=== PATIENT | female | born 1995 | race Caucasian/White ===

== ENCOUNTER → 2016-06-17 | Outpatient (CLI) | payer OTHER ==
[~2016-06-17] MED LIST: Augmentin; IBUP-792; LORYNA; MULT-608; NAPR500T3 PO; TRAM-42 PO
--- NOTE | 2016-06-17 16:48 | Diagnostic Imaging Report ---
PA and lateral views of the chest Indication: Cough Findings: The lungs are clear. The heart size is normal. There is no effusion or pneumothorax The mediastinum and chang appear unremarkable. Impression: Unremarkable study. Dictated by: Dictated on workstation # [id number]
== END ==
LOC: RAD 16:23
PROVIDERS: ATTEND Nurse Practitioner Family
DX: R06.02 Shortness of breath (principal); R05 Cough
CPT/HCPCS: 71020

== ENCOUNTER → 2017-01-18 | Outpatient (CLI) | payer OTHER ==
[~2017-01-18] VITALS: Ht 177.8 cm; Wt 143.3 kg
[~2017-01-18] MED LIST changes: -NAPR500T3 PO; +NAPR500T4 PO; +NS IV 1000 ML 1,000 ML IV SCH; +ONDANSETRON 4 MG/2 ML (SDV) Z0FRAN IV PRN
[2017-01-18 14:50] VITALS: BP 136/88
[2017-01-18 15:32] LABS: MEAN PLATELET VOLUME 11.3 FL (7.4-10.4); RED CELL DISTRIBUTION WIDTH 12.4 % (10.0-14.5)
[2017-01-18 15:51] LABS: ALANINE AMINOTRANSFERASE 57 U/L (0-55); ALBUMIN 4.1 GM/DL (3.2-4.5); ANION GAP 12 MMOL/L (5-14); ASPARTATE AMINO TRANSFERASE 33 U/L (5-34); BILIRUBIN,TOTAL 0.9 MG/DL (0.1-1.0); BLOOD UREA NITROGEN 7 MG/DL (7-18); BUN/CREATININE RATIO 9; CALCIUM 9.6 MG/DL (8.5-10.1); CARBON DIOXIDE 26 MMOL/L (21-32); CHLORIDE 99 MMOL/L (98-107); CREATININE SERUM 0.79 MG/DL (0.60-1.30); GFR ESTIMATED > 60; GLUCOSE 179 MG/DL (70-105); POTASSIUM 4.2 MMOL/L (3.6-5.0); SODIUM 137 MMOL/L (135-145); TOTAL PROTEIN 8.3 GM/DL (6.4-8.2)
[2017-01-20 07:16] LABS: IGM MUMPS ANTIBODY <1:10 (<1:10)
[2017-01-20 07:22] LABS: IGG MUMPS ANTIBODY >300.0 H AU/ML (0.0-8.9)
[2017-01-20 07:25] LABS: MUMPS IGG INT Positive
== END ==
LOC: SDC 14:42
PROVIDERS: ATTEND Nurse Practitioner Family
DX: R50.9 Fever, unspecified (principal); E86.0 Dehydration; J02.9 Acute pharyngitis, unspecified
CPT/HCPCS: 36415; 80053; 85027; 86308; 86735; 96365; 96375

== ENCOUNTER → 2017-02-01 | Outpatient (CLI) | payer OTHER ==
[~2017-02-01] MED LIST changes: -NS IV 1000 ML 1,000 ML IV SCH; -ONDANSETRON 4 MG/2 ML (SDV) Z0FRAN IV PRN
--- NOTE | 2017-02-01 15:25 | Diagnostic Imaging Report ---
PROCEDURE: MRI right joint lower extremity without contrast. TECHNIQUE: Multiplanar, multisequence non contrast-enhanced MRI of the right ankle was accomplished. INDICATION: Ankle pain with repetitive injuries. COMPARISONS: Ankle radiographs of 02/01/2016. FINDINGS: TENDONS: The Achilles is normal. The peroneus brevis and longus tendons are normal in position without tear or tenosynovitis. The posterior tibialis, flexor digitorum longus and flexor hallucis longus are normal. Anterior tibialis, extensor hallucis longus, extensor digitorum longus and peroneus tertius are all normal where seen. LIGAMENTS: The anterior and posterior tibiofibular ligaments are intact. The anterior talofibular, calcaneofibular and posterior talofibular ligaments are normal. The medial deltoid ligamentous complex is intact. BONES AND CARTILAGE: No osteochondral lesion of the talar dome. No fracture or stress fracture. The articular cartilage of the tibiotalar and posterior subtalar joints are normal. Normal variant os trigonum is present without edema across the synchondrosis to indicate posterior ankle impingement. SOFT TISSUES: No evidence of plantar fasciitis. No abnormal soft tissue scar/fibrosis within the tarsal canal/sinus tarsi or tarsal tunnel. No ankle joint effusion. IMPRESSION: 1. No tendinous or ligamentous abnormality about the ankle to indicate patient's source of pain. 2. No fracture or bone contusion. Dictated by: Dictated on workstation # [id number]
== END ==
LOC: RAD 10:46
PROVIDERS: ATTEND Nurse Practitioner
DX: S86.311A Strain of muscle(s) and tendon(s) of peroneal muscle group at lower leg level, right leg, initial encounter (principal)
CPT/HCPCS: 73721

== ENCOUNTER 2017-03-26 10:45 | Outpatient (RCR) | payer OTHER | END 2017-03-26 12:07 | disposition home or self-care (01) | PROVIDERS: ATTEND Nurse Practitioner | DX: S93.491A Sprain of other ligament of right ankle, initial encounter (principal); X50.9XXA Other and unspecified overexertion or strenuous movements or postures, initial encounter ==

== ENCOUNTER → 2017-07-28 | Outpatient (CLI) | payer OTHER ==
[~2017-07-28] MED LIST changes: +NAPR-915 PO; -NAPR500T4 PO
--- NOTE | 2017-07-28 17:32 | Diagnostic Imaging Report ---
EXAMINATION: Abdomen at 5:03 p.m. INDICATION: Left-sided abdominal pain. There are no prior studies available for comparison. Two supine views were obtained. FINDINGS: There is a small amount of gas in both the large and small bowel in a nonspecific fashion. There is no evidence for bowel obstruction. There is a moderate amount of fecal material in the ascending colon. There is no mass, organomegaly, or pathological calcification evident. The osseous structures are intact. IMPRESSION: 1. The bowel gas pattern is nonspecific. There is no acute abnormality evident. 2. These results were called to Rafaela Lobato APRN. Dictated by: Dictated on workstation # [id number]
== END ==
LOC: RAD 16:11
PROVIDERS: ATTEND Nurse Practitioner Family
DX: R10.30 Lower abdominal pain, unspecified (principal)
CPT/HCPCS: 74018

== ENCOUNTER → 2017-09-02 | Outpatient (CLI) | payer OTHER ==
--- NOTE | 2017-09-02 14:03 | Diagnostic Imaging Report ---
PROCEDURE: US Non-ob pelvis comp/trans. TECHNIQUE: Multiple realtime grayscale images were obtained of the pelvis in various projections endovaginally. Transabdominal imaging was also performed. INDICATION: Dysfunctional uterine bleeding and pelvic pain. FINDINGS: Uterus measures 5.9 x 3.7 x 2.6 cm. The endometrium is 3 mm in thickness. No uterine mass is identified. Left ovary was obscured by bowel gas. Right ovary measures 4.5 x 3.6 x 1.8 cm. No adnexal mass or free fluid is seen. IMPRESSION: Nonvisualized left ovary. The study is otherwise unremarkable. Dictated by: Dictated on workstation # [id number]
== END ==
LOC: RAD 10:52
PROVIDERS: ATTEND Nurse Practitioner
DX: N93.8 Other specified abnormal uterine and vaginal bleeding (principal)
CPT/HCPCS: 76830; 76856

== ENCOUNTER → 2018-05-13 | Outpatient (CLI) | payer OTHER ==
--- NOTE | 2018-05-13 12:32 | Diagnostic Imaging Report ---
PROCEDURE: US Non-ob pelvis comp/trans. TECHNIQUE: Multiple realtime grayscale images were obtained of the pelvis in various projections endovaginally. Transabdominal imaging was also performed. INDICATION: Left-sided pelvic pain as well as dyspareunia and irregular menses. FINDINGS: The uterus measures 6.4 x 3.8 x 3.1 cm. Endometrium is 3 mm in thickness. No myometrial mass is identified. Right ovary measures 2.7 x 2.5 x 1.4 cm and appears unremarkable. Left ovary is visualized transabdominally measuring 3.5 x 1.6 x 1.6 cm. No adnexal masses seen. Trace free fluid is identified. IMPRESSION: Unremarkable pelvic ultrasound. Dictated by: Dictated on workstation # [id number]
== END ==
LOC: RAD 10:36
PROVIDERS: ATTEND Nurse Practitioner
DX: N83.209 Unspecified ovarian cyst, unspecified side (principal)
CPT/HCPCS: 76830; 76856

== ENCOUNTER → 2018-10-06 | Outpatient (CLI) | payer OTHER ==
[2018-10-06 11:21] LABS: BASOPHILS % (AUTO) 1 % (0-10); EOSINOPHILS # (AUTO) 0.5 10^3/uL (0.0-0.3); EOSINOPHILS % (AUTO) 6 % (0-10); HEMATOCRIT 41 % (35-52); HEMOGLOBIN 14.1 G/DL (11.5-16.0); LYMPHOCYTES % (AUTO) 24 % (12-44); MEAN CORPUSCULAR HEMOGLOBIN 31 PG (25-34); MEAN CORPUSCULAR HGB CONC 34 G/DL (32-36); MEAN CORPUSCULAR VOLUME 89 FL (80-99); MEAN PLATELET VOLUME 11.4 FL (7.4-10.4); MONOCYTES # (AUTO) 0.6 X 10^3 (0.0-1.0); MONOCYTES % (AUTO) 8 % (0-12); NEUTROPHILS % (AUTO) 62 % (42-75); PLATELET COUNT 288 10^3/uL (130-400); RED CELL DISTRIBUTION WIDTH 13.2 % (10.0-14.5); WHITE BLOOD COUNT 8.1 10^3/uL (4.3-11.0)
[2018-10-06 11:36] LABS: ALANINE AMINOTRANSFERASE 28 U/L (0-55); ALKALINE PHOSPHATASE 88 U/L (40-136); BILIRUBIN,TOTAL 0.4 MG/DL (0.1-1.0); BUN/CREATININE RATIO 10; CALCIUM 9.1 MG/DL (8.5-10.1); CARBON DIOXIDE 21 MMOL/L (21-32); CHLORIDE 111 MMOL/L (98-107); CREATININE SERUM 0.79 MG/DL (0.60-1.30); GFR ESTIMATED > 60; GLUCOSE 72 MG/DL (70-105); POTASSIUM 3.9 MMOL/L (3.6-5.0); SODIUM 142 MMOL/L (135-145); TOTAL PROTEIN 7.3 GM/DL (6.4-8.2)
== END ==
LOC: LAB 11:05
PROVIDERS: ATTEND Family Medicine
DX: L40.9 Psoriasis, unspecified (principal)
CPT/HCPCS: 36415; 80053; 82746; 85025

== ENCOUNTER 2018-11-02 12:00 | Outpatient (CLI) | payer OTHER ==
[~2018-11-02] VITALS: Ht 177.8 cm; Wt 136.1 kg
[2018-11-02] MEDS ORDERED: MULT-141 PO (12:02)
[2018-11-02] MEDS ORDERED: BACI1CAP6 PO (12:02)
[2018-11-02] MEDS ORDERED: FOLI1TAB24 PO (12:02)
[2018-11-02] MEDS ORDERED: LEVO1TAB20 PO (12:02)
[2018-11-02] MEDS ORDERED: ASCO-262 PO (12:02)
[2018-11-02] MEDS ORDERED: TOPI25TA10 PO (12:02)
[2018-11-02] MEDS ORDERED: METH2.5T PO (12:02)
== END 2018-11-02 12:09 | disposition home or self-care (01) ==
LOC: PREOP 12:00
PROVIDERS: ATTEND Obstetrics & Gynecology
DX: Z01.818 Encounter for other preprocedural examination (principal)

== ENCOUNTER 2018-11-07 09:13 | Day surgery (SDC) | payer OTHER ==
[~2018-11-07] VITALS: Ht 177.8 cm; Wt 136.1 kg
[2018-11-07] VITALS (11 sets, daily range): BP systolic 121–139; BP diastolic 72–87
[~2018-11-07 09:13] MED LIST changes: +ASCO-262 PO; +BACI1CAP6 PO; +FOLI1TAB24 PO; +LEVO1TAB20 PO; +METH2.5T PO; +MULT-141 PO; +TOPI25TA10 PO
[2018-11-07] MEDS ORDERED: LACTATED RINGERS 1,000 ML IV PRN (09:24)
[2018-11-07] MEDS ORDERED: ceFAZolin INJECTION 1,000 MG in WATER (STERILE) FOR INJECTION 10 ML IV ONE (09:30)
--- NOTE | 2018-11-07 09:37 | Progress Note-Pre Operative ---
Pre-Operative Progress Note H&P Reviewed The H&P was reviewed, patient examined and no changes noted. Date Seen by Provider: Nov 07, 2018 Time Seen by Provider: 09:10 Date H&P Reviewed: Nov 07, 2018 Time H&P Reviewed: 09:10 Pre-Operative Diagnosis: JOAQUINA NEWMAN DO Nov 07, 2018 09:37
[2018-11-07 10:42] LABS: BASOPHILS % (AUTO) 0 % (0-10); EOSINOPHILS # (AUTO) 0.3 10^3/uL (0.0-0.3); EOSINOPHILS % (AUTO) 4 % (0-10); HEMATOCRIT 41 % (35-52); HEMOGLOBIN 13.8 G/DL (11.5-16.0); LYMPHOCYTES % (AUTO) 30 % (12-44); MEAN CORPUSCULAR HEMOGLOBIN 31 PG (25-34); MEAN CORPUSCULAR HGB CONC 33 G/DL (32-36); MEAN CORPUSCULAR VOLUME 91 FL (80-99); MEAN PLATELET VOLUME 11.3 FL (7.4-10.4); MONOCYTES # (AUTO) 0.5 X 10^3 (0.0-1.0); MONOCYTES % (AUTO) 7 % (0-12); NEUTROPHILS # (AUTO) 3.9 X 10^3 (1.8-7.8); NEUTROPHILS % (AUTO) 58 % (42-75); PLATELET COUNT 298 10^3/uL (130-400); RED CELL DISTRIBUTION WIDTH 13.9 % (10.0-14.5); WHITE BLOOD COUNT 6.7 10^3/uL (4.3-11.0)
--- NOTE | 2018-11-07 10:56 | Discharge Inst-Women's Service ---
Discharge Inst-Women's Serv Depart Medication/Instructions New, Converted or Re-Newed RX: RX on Chart Problems Reviewed?: Yes Consults/Follow Up Additional Follow Up: Yes Orders/Referrals Dr. Puente in 2 weeks and in 8 weeks Activity Activity: Activity as Tolerated Driving Instructions: No Driving for 1 Week NO SMOKING: NO SMOKING Nothing Inside Vagina: No Douching, No [place], No Tampons Diet Discharge Diet: No Restrictions Symptoms to Report to : Bleeding Excessive, Pain Increased, Fever Over 101 Degrees F, Vaginal Bleeding Increase, Questions/Concerns For Any Problems or Questions: Contact Your Physician Skin/Wound Care Infection Signs and Symptoms: Increased Redness, Foul Odor of Wound, Increased Drainage, Skin Itchy or Has a Rash, Increased Swelling, Temperature Above 101 F Operative Area Clean and Dry: Keep Incision Clean/Dry Stitches/[place]/Dermabond: Dermabond, Care of Stitches Bathing Instructions: JOAQUINA Garces DO Nov 07, 2018 10:56
[2018-11-07] MEDS ORDERED: D5 LR IV SOLUTION 1,000 ML IV SCH (10:59)
[2018-11-07] MEDS ORDERED: HYDR-4226 PO (10:59)
[2018-11-07] MEDS ORDERED: IBUP-1773 PO (10:59)
[2018-11-07] MEDS ORDERED: ONDANSETRON 4 MG/2 ML (SDV) Z0FRAN IVP PRN ×2 (11:00→13:30)
[2018-11-07] MEDS ORDERED: HYDROcodone/APAP 5 MG/325 MG (LORTAB) TAB PO PRN (11:00)
[2018-11-07] MEDS ORDERED: KETOROLAC 30 MG/ML VIAL IVP ONE (11:00)
[2018-11-07] MEDS ORDERED: BUPIVACAINE 0.25% 30 ML (SENSORCAINE) VIAL ONE (11:46)
[2018-11-07] MEDS ORDERED: MULT-192 PO (12:19)
[2018-11-07] MEDS ORDERED: SEVOFLURANE (ULTANE) 15 ML INHAL SOLN ONE ×5 (13:11→14:20)
[2018-11-07] MEDS ORDERED: LIDOCAINE PF 2% 5 ML (XYLOCAINE) VIAL ONE (13:11)
[2018-11-07] MEDS ORDERED: proPOfol 200 MG/20 ML (DIPRIVAN) VIAL IV ONE (13:11)
[2018-11-07] MEDS ORDERED: MIDAZOLAM 2 MG/2 ML (VERSED) VIAL ONE (13:12)
[2018-11-07] MEDS ORDERED: fentaNYL INJECTION 100 MCG/2 ML AMP ONE (13:13)
[2018-11-07] MEDS ORDERED: MEPERIDINE (DEMEROL) INJ 50 MG/ML IVP ONE (13:30)
[2018-11-07] MEDS ORDERED: morphine INJ 10 MG/ML 1ML (SYR OR VIAL) IVP ONE (13:30)
[2018-11-07] MEDS ORDERED: ROCURONIUM 10 MG/ML 5 ML SYRINGE IV ONE (14:09)
[2018-11-07] MEDS ORDERED: NEOSTIGMINE 3 MG/3 ML VIAL ONE (14:20)
[2018-11-07] MEDS ORDERED: KETOROLAC 30 MG/ML VIAL ONE (14:20)
[2018-11-07] MEDS ORDERED: GLYCOPYRROLATE 0.2 MG/ML (ROBINUL) 2 ML VIAL ONE (14:20)
[2018-11-07] MEDS ORDERED: DEXAMETHASONE 10 MG/ML (DECADRON) 1 ML VIAL ONE (14:21)
[2018-11-07] MEDS ORDERED: ONDANSETRON 4 MG/2 ML (SDV) Z0FRAN ONE (14:21)
--- NOTE | 2018-11-07 15:32 | Anesthesia-General Post-Op ---
General Patient Condition Mental Status/LOC: Same as Preop Cardiovascular: Satisfactory Nausea/Vomiting: Absent Respiratory: Satisfactory Pain: Controlled Complications: Absent Post Op Complications Complications None Follow Up Care/Instructions Patient Instructions None needed. Anesthesia/Patient Condition Patient Condition Patient is doing well, no complaints, stable vital signs, no apparent adverse anesthesia problems. No complications reported per nursing. MARY SOTO CRNA Nov 07, 2018 15:32
--- NOTE | 2018-11-07 16:33 | NUR ---
HAS BEEN ALERT, CHEERFUL, TAKING PO FLUIDS AND CRACKERS WITHOUT PROBLEM THROUGHOUT RECOVERY. HAS BEEN UP TO BR WITH ASSIST, VOIDED, GAIT STEADY. DERMABOND INTACT TO X2 LAP ABD SURGICAL SITES. VERY SCANT AMOUNT OF BLOODY DRAINAGE ON V-PAD. PAIN RATED 2. STATES SHE IS READY FOR DISMISSAL.
--- NOTE | 2018-11-07 19:42 | OPERATIVE REPORT ---
DATE OF SERVICE: 11/07/2018 PREOPERATIVE DIAGNOSES: 1. A 23-year-old female with chronic pelvic pain. 2. Dysmenorrhea. POSTOPERATIVE DIAGNOSES: 1. A 23-year-old female with chronic pelvic pain. 2. Dysmenorrhea. PROCEDURE PERFORMED: Diagnostic laparoscopy with placement of Liletta IUD. SURGEON: Joaquina Rivera DO ANESTHESIA: General endotracheal. ESTIMATED BLOOD LOSS: Minimal. URINE OUTPUT: 125, clear at the end of the procedure. FLUIDS: 800 mL lactated Ringer's solution. FINDINGS: A grossly normal appearing uterus, bilateral fallopian tubes and ovaries, a small amount of clotted blood in the pelvis, otherwise, grossly normal abdominal anatomy otherwise. SPECIMEN SENT: None. INDICATIONS FOR PROCEDURE: This 23-year-old female patient has seen me in my office for over a year now with concerns of pelvic pain, severe painful periods. Other alternative methods have been attempted to try and stop her periods and the discomfort they are causing, it is also causing dyspareunia and affecting her relationship. We discussed we proceed with diagnostic laparoscopy with underlying suspicion for endometriosis. Risks of the procedure were discussed with the patient in detail including risk of bleeding, infection, damage to surrounding structures including, but not limited to bowel, bladder, ureter, kidneys, possible need for reoperation, postoperative complication, recovery timeframe, risk from anesthesia and even . After everything was discussed with the patient in detail, we also discussed placement of Liletta while she was asleep both for her comfort and to hopefully help treat her painful periods. She was agreeable to this as well. After all of her questions were answered, consent was obtained in the preoperative area, the patient was taken to the operating room. OPERATIVE REPORT IN DETAIL: Once in the operating room, anesthesia was found to be adequate, placed in dorsal lithotomy position, prepped and draped in normal sterile fashion. A timeout was performed. Edmond catheter was placed using sterile technique. A weighted speculum was inserted in the patient's vagina. Right angle retractor was used to visualize the cervix. It was grasped at 12 o'clock position using a long Allis clamp. I then gently sounded and the uterine cavity depth was found to be 8 cm and I placed a Kronner uterine manipulator to a depth of 8 cm and removed the instruments from the patient's vagina performing the change of gloves and I turned my attention to the abdomen where infraumbilically I infiltrated this area using 0.25% Marcaine and make a 5 mm incision, directed Veress needle through the incision until intraperitoneal placement was confirmed using saline drop test and an opening pressure of 5 mmHg was noted. I proceeded to a max pressure of 15 mmHg, at which point I removed the Veress needle and introduced a 5 mm blunt laparoscopic trocar. Once this was in place, I am able to confirm intraperitoneal placement using the laparoscope. I then had the patient placed in steep Trendelenburg after I inserted the camera, there was no evidence of damage upon my entry site. There is a small amount of blood that was dark and clotted as noted in the pelvis and the posterior cul-de-sac. This was cleared using suction irrigation after placing a second trocar suprapubically and a 5 mm trocar. I placed in the same fashion as my infraumbilical trocar. Once this was in place, I am able to manipulate the pelvic anatomy and evaluated thoroughly and there was no evidence of endometriosis serosally. The pelvis and the abdomen was then copiously irrigated using normal saline. There was no active bleeding noted from any of my dissection planes. I have the patient taken out of steep Trendelenburg and flattened out. I removed the suprapubic trocar under direct visualization and laparoscope. The infraumbilical trocar was left in place to introduce 10 mL of 0.25% Marcaine and to release insufflation. Once this was done, I removed this trocar. The skin was reapproximated using Dermabond. Bandages were placed over the incisions. I turned my attention back to the pelvis where a weighted speculum was inserted in the patient's vagina and the Kronner uterine manipulator was removed. I placed a Liletta at a depth of 7 cm and deployed in the usual fashion, after which I trimmed the strings 2-3 cm outside the external cervical os. The patient tolerated the procedure well and was taken to recovery area in stable condition. All instruments were removed from the patient's vagina. Lap and sponge counts were correct at the end of the procedure. Instrument count was correct as well. Job ID: [id number] DocumentID: [id number] Dictated Date: 11/07/2018 14:57:10 Brief Writer Date: 11/07/2018 19:40:55 Dictated By: JOAQUINA RIVERA DO
== END 2018-11-07 16:33 | disposition home or self-care (01) ==
LOC: SDC 09:13
PROVIDERS: ATTEND Obstetrics & Gynecology
DX: N94.5 Secondary dysmenorrhea (principal); N93.9 Abnormal uterine and vaginal bleeding, unspecified; N94.10 Unspecified dyspareunia; G89.29 Other chronic pain; G43.909 Migraine, unspecified, not intractable, without status migrainosus; E66.9 Obesity, unspecified; R55 Syncope and collapse; Z90.89 Acquired absence of other organs; Z30.430 Encounter for insertion of intrauterine contraceptive device; Z68.41 Body mass index [BMI] 40.0-44.9, adult; Z88.8 Allergy status to other drugs, medicaments and biological substances; Z79.899 Other long term (current) drug therapy; Z88.1 Allergy status to other antibiotic agents; Z88.2 Allergy status to sulfonamides; Z79.891 Long term (current) use of opiate analgesic; Z82.49 Family history of ischemic heart disease and other diseases of the circulatory system
CPT/HCPCS: 36415; 84703; 85025; 86850; 86900; 86901; 87081; 94664

== ENCOUNTER 2019-03-20 23:45 | Emergency (ER) | payer OTHER ==
[~2019-03-20] VITALS: Ht 177 cm; Wt 139.5 kg
[~2019-03-20 23:45] MED LIST changes: +HYDR-4226 PO; +IBUP-1773 PO; +MULT-192 PO
[2019-03-21] MEDS ORDERED: RT-ALBUTEROL/IPRATROPIUM 3 ML (DUONEB) VIAL ONE (00:20)
[2019-03-21] MEDS ORDERED: RT-ALBUTEROL/IPRATROPIUM 3 ML (DUONEB) VIAL INH ONE (00:30)
[2019-03-21] MEDS ORDERED: RX-ALBUTEROL NEB 2.5 MG/3 ML PACK #5 IH STA (00:57)
[2019-03-21] MEDS ORDERED: methylPREDNISolone 40 MG/ML (DEPO MEDROL) VIAL IM ONE (01:00)
--- NOTE | 2019-03-21 01:01 | ED Respiratory ---
General Chief Complaint: Respiratory Problems Stated Complaint: SOB Nursing Triage Note: Pt to RM 9 via WC with c/o SOB after taking 2 puffs of albuterol IH around 2200 that was prescribed to her last year when she had pneumonia. PT states she had a cough and had some trouble breathing when she took the IH and has "been breathing heavily since". Pt is 99% on RA during triage. PT does not have a Hx of any resp issues. Source: patient Exam Limitations: no limitations History of Present Illness Date Seen by Provider: Mar 21, 2019 Time Seen by Provider: 00:48 Initial Comments Patient presents to ER by private conveyance with chief complaint of shortness of breath and wheezing. No history of asthma. She said 3 weeks ago she was diagnosed with bronchitis and was given an albuterol inhaler to use every 4 hours as needed as well as a course of steroids and azithromycin. She completed all that and was feeling better until a couple days ago. Now when she pushes patient is on carts back and forth the CT she became very winded and cannot catch her breath. She was using her albuterol inhaler 2 puffs every hour. She says it would work for about an hour and then she would become very short of breath and wheezy again. She does have a nonproductive cough but no fevers or chills. She is not taking antipyretics. She follows with Dr. Espitia. Allergies and Home Medications Allergies Coded Allergies: sulfamethoxazole (Verified Allergy, Unknown, Hives, 11/02/18) trimethoprim (Verified Allergy, Unknown, Hives, 11/02/18) Home Medications Albuterol Sulfate 2.5 Mg/3 Ml Vial.neb, 2.5 MG INH Q4H PRN for WHEEZING Prescribed by: SRUTHI THOMAS on 03/21/19 0157 Ascorbate Calcium 500 Mg Tablet, 500 MG PO DAILY, (Reported) Bacillus Coagulans 1 Each Capsule., 1 EACH PO DAILY, (Reported) Folic Acid 1 Mg Tablet, 1 MG PO DAILY, (Reported) Hydrocodone/Acetaminophen 1 Each Tablet, 1-2 TAB PO Q6H Prescribed by: JOAQUINA RIVERA on 11/07/18 1059 Ibuprofen 600 Mg Tablet, 600 MG PO Q6H Prescribed by: JOAQUINA RIVERA on 11/07/18 1059 Methotrexate Sodium 2.5 Mg Tablet, 20 MG PO WEEK, (Reported) take 8 (2.5mg) tabs on Multivitamin 1 Each Tab.chew, 2 EACH PO DAILY, (Reported) Topiramate 25 Mg Tablet, 25 MG PO BID, (Reported) Patient Home Medication List Home Medication List Reviewed: Yes Review of Systems Review of Systems Constitutional: No chills, No fever EENTM: No ear discharge, No ear pain Respiratory: cough; No phlegm; short of breath, wheezing Cardiovascular: No chest pain, No edema Gastrointestinal: No abdominal pain, No nausea, No vomiting Genitourinary: No discharge, No dysuria Musculoskeletal: No back pain, No joint pain All Other Systems Reviewed Negative Unless Noted: Yes Past Hsmhpap-Zdxzwx-Zcdstb Hx Patient Social History Alcohol Use: Denies Use Recreational Drug Use: No Smoking Status: Never a Smoker Recent Foreign Travel: No Contact w/Someone Who Travel: No Recent Infectious Disease Expo: No Recent Hopitalizations: No Immunizations Up To Date Tetanus Booster (TDap): Unknown PED Vaccines UTD: Yes Date of Influenza Vaccine: Nov 23, 2015 Seasonal Allergies Seasonal Allergies: Yes Past Medical History Surgeries: Yes (2 knee arthroscopies, wisdom) Adenoidectomy, Orthopedic, Tonsillectomy Respiratory: No Currently Using CPAP: No Currently Using BIPAP: No Cardiac: No Neurological: Yes Headaches /Migraines Reproductive Disorders: No Female Reproductive Disorders: Denies Sexually Transmitted Disease: No Genitourinary: No Gastrointestinal: No Musculoskeletal: Yes (knee scopes) Endocrine: No HEENT: No Cancer: No Psychosocial: No Integumentary: Yes Psoriasis Blood Disorders: No Physical Exam Vital Signs - First Documented 03/21/19 00:18 Temp 37.9 Pulse 82 Resp 22 B/P (MAP) 134/96 (109) Pulse Ox 99 O2 Delivery Room Air Capillary Refill : Less Than 3 Seconds Height: 5'10.00" Weight: 300lbs. 0.0oz. 136.551575ot; 44.00 BMI Method:Stated General Appearance: WD/WN, no apparent distress Eyes: Bilateral Eye Normal Inspection, Bilateral Eye PERRL, Bilateral Eye EOMI HEENT: PERRL/EOMI, normal ENT inspection, TMs normal, pharynx normal Neck: full range of motion, normal inspection Respiratory: no respiratory distress, no accessory muscle use; No rales; whe ezing (left worse than right) Cardiovascular: normal peripheral pulses, regular rate, rhythm Gastrointestinal: non tender, soft Neurologic/Psychiatric: alert, normal mood/affect, oriented x 3 Skin: normal color, warm/dry Progress/Results/Core Measures Suspected Sepsis Recent Fever Within 48 Hours: No Infection Criteria Present: None New/Unexplained Altered Menta: No Sepsis Screen: No Definite Risk SIRS Temperature: Pulse: 82 Respiratory Rate: 22 Blood Pressure 134 /96 Mean: 109 Results/Orders My Orders Orders - SRUTHI THOMAS Albuterol/Ipra Inhalation Soln (Duoneb I (03/21/19 00:30) Svn Small Volume Nebulizer (03/21/19 00:23) Albuterol/Ipra Inhalation Soln (Duoneb I (03/21/19 00:20) Chest Pa/Lat (2 View) (03/21/19 00:57) Methylprednisolone Acetate Inj (Depo-Med (03/21/19 01:00) Rx-Albuterol Nebs (Rx-Proventil Nebs) (03/21/19 00:57) Albuterol Pre-Mix Nebs (Rt) (Proventil (03/21/19 02:00) Medications Given in ED Current Medications Medications Dose Ordered Sig/Marcus Route Start Time Stop Time Status Last Admin Dose Admin Albuterol/ Ipratropium 3 ml STK-MED ONCE .ROUTE 03/21/19 00:20 03/21/19 00:24 DC 03/21/19 00:32 3 ML Methylprednisolone Acetate 40 mg ONCE ONCE IM 03/21/19 01:00 03/21/19 01:01 DC 03/21/19 02:06 40 MG Vital Signs/I&O 03/21/19 03/21/19 03/21/19 00:18 00:27 02:21 Temp 37.9 37.9 Pulse 82 82 Resp 22 22 B/P (MAP) 134/96 (109) 134/96 (109) Pulse Ox 99 99 99 O2 Delivery Room Air Room Air Room Air Capillary Refill : Less Than 3 Seconds Blood Pressure Mean: 109 Progress Note : Time: 00:59 Progress Note After a DuoNeb the patient felt 100% better however she still having some left- sided wheezing. Plan to get a 2 view chest x-ray, Depo-Medrol and around the nebulizer and appropriate antibiotics if indicated. Diagnostic Imaging Diagonstic Imaging: Xray Plain Films/CT/US/NM/MRI: chest (2v) Comments No acute cardiopulmonary process on 2 view chest x-ray. Reviewed: Reviewed by Me Departure Impression Primary Impression: Bronchitis Disposition: HOME, SELF-CARE Condition: Stable Departure-Patient Inst. Decision time for Depature: 01:56 Referrals: YARITZA STEVENS MD (PCP) Primary Care Physician MARCIA PACK APRN (Family) Primary Care Physician Patient Instructions: Acute Bronchitis, Adult (DC) Add. Discharge Instructions: Prednisone one tablet for 10 days. This will work in conjunction with the prednisone shot which was going out for about 5-7 days. Albuterol 2.5 mg every 6 hours on schedule and once every 2 hours as needed for wheezing, shortness of breath, coughing fits. Plan to follow up with your primary care doctor. All discharge instructions reviewed with patient and/or family. Voiced understanding. Scripts Albuterol Sulfate (Albuterol Sulfate) 2.5 Mg/3 Ml Vial.neb 2.5 MG INH Q4H PRN for WHEEZING, #50 EA 1 Refill Prov: SRUTHI HTOMAS 03/21/19 Work/School Note: Work Release Form Date Seen in the Emergency Department: Mar 21, 2019 Return to Work: Mar 22, 2019 Restrictions: No Restrictions SRUTHI THOMAS Mar 21, 2019 01:01
[2019-03-21] MEDS ORDERED: ALBU2.5V4 INH (01:57)
[2019-03-21] MEDS ORDERED: RT-ALBUTEROL SULF 2.5 MG/3 ML PRE-MIX VIAL INH STA (02:00)
[2019-03-21 02:21] VITALS: BP 134/96
--- NOTE | 2019-03-21 07:32 | Diagnostic Imaging Report ---
INDICATION: Shortness of air COMPARISON: 06/17/2016 FINDINGS: Frontal and lateral views of the chest demonstrate normal heart size and pulmonary vascularity. The lungs are clear. There are no signs of infiltrate, pleural effusions or pneumothoraces. The visualized osseous structures show no acute abnormalities. IMPRESSION: 1. No acute process. No signs of infiltrates, effusions or pneumothoraces. Dictated by: Dictated on workstation # [id number]
== END 2019-03-21 02:22 | disposition home or self-care (01) ==
LOC: EDUNIT# 23:45 → ER 23:46
DX: J40 Bronchitis, not specified as acute or chronic (principal); G43.909 Migraine, unspecified, not intractable, without status migrainosus; Z88.2 Allergy status to sulfonamides; Z88.1 Allergy status to other antibiotic agents; Z90.89 Acquired absence of other organs
CPT/HCPCS: 71046; 94640; 94760

== ENCOUNTER 2021-04-24 23:12 | Emergency (ER) | payer OTHER ==
[~2021-04-24] VITALS: Ht 178 cm; Wt 145.0 kg
[~2021-04-24 23:12] MED LIST changes: +ALBU2.5V4 INH; -FOLI1TAB24 PO; +FOLI1TAB33 PO
[2021-04-25 00:27] LABS: BASOPHILS % (AUTO) 1 % (0-10); EOSINOPHILS # (AUTO) 0.2 10^3/uL (0.0-0.3); EOSINOPHILS % (AUTO) 3 % (0-10); HEMATOCRIT 34 % (35-52); HEMOGLOBIN 11.2 g/dL (11.5-16.0); LYMPHOCYTES # (AUTO) 2.5 10^3/uL (1.0-4.0); LYMPHOCYTES % (AUTO) 31 % (12-44); MEAN CORPUSCULAR HEMOGLOBIN 29 pg (25-34); MEAN CORPUSCULAR HGB CONC 33 g/dL (32-36); MEAN CORPUSCULAR VOLUME 87 fL (80-99); MEAN PLATELET VOLUME 11.2 fL (9.0-12.2); MONOCYTES # (AUTO) 0.7 10^3/uL (0.0-1.0); MONOCYTES % (AUTO) 8 % (0-12); NEUTROPHILS # (AUTO) 4.7 10^3/uL (1.8-7.8); NEUTROPHILS % (AUTO) 58 % (42-75); PLATELET COUNT 234 10^3/uL (130-400); WHITE BLOOD COUNT 8.1 10^3/uL (4.3-11.0)
[2021-04-25 00:31] LABS: POTASSIUM 3.6 MMOL/L (3.6-5.0)
[2021-04-25 00:32] LABS: CALCIUM 9.1 MG/DL (8.5-10.1)
[2021-04-25 00:37] LABS: CREATININE SERUM 0.7 MG/DL (0.60-1.30)
[2021-04-25 00:43] LABS: BILIRUBIN,URINE NEGATIVE (NEGATIVE); CLARITY,URINE CLEAR; COLOR,URINE YELLOW; GLUCOSE, URINE (UA) NEGATIVE (NEGATIVE); KETONES,URINE NEGATIVE (NEGATIVE); LEUKOCYTE ESTERASE ,URINE 1+ (NEGATIVE); NITRITE,URINE NEGATIVE (NEGATIVE); PH,URINE 6.5 (5-9); PROTEIN,URINE NEGATIVE (NEGATIVE)
[2021-04-25 00:54] LABS: BACTERIA,URINE NEGATIVE /HPF; RBC,URINE RARE /HPF; SQUAMOUS EPITHELIAL CELL,UR 0-2 /HPF
[2021-04-25] MEDS ORDERED: fentaNYL INJ 100 MCG/2 ML AMP IVP ONE (01:30)
--- NOTE | 2021-04-25 01:30 | ED Abdominal Pain ---
General Chief Complaint: Abdominal/GI Problems Stated Complaint: LEFT SIDE ABD PAIN/NAUSEA Nursing Triage Note: PT AMB TO ER WITH C/O L SIDE PELVIC PAIN SINCE ABOUT 1700 AND NAUSEA Source of Information: Patient Exam Limitations: No Limitations History of Present Illness Date Seen by Provider: Apr 25, 2021 Time Seen by Provider: 00:05 Initial Comments Patient is a 25yo female who presents to the ER with a chief complaint of LLQ abdominal pain/ left low pelvic pain. Of about 7 hours duration today. She has take Ibiprofen and alleve without any relief of symptoms. She denies any dysuria, urgency or frequency. No noticeable hematuria. She is on the last day of her menstrual cycle currently. Most of the time her menses are pretty regular although she dies have a history of PCOS. She has had a previous ex-lap for endometriosis. She denies any bowel issues, no diarrhea or black or bloody stools. No fevers, chills, nausea or vomiting. Nothing really makes the pain any better or any worse. She states the pain tends to come in "waves" with a persistent dull ache. She has had a history of ovarian cysts but it has been "years" since she had issues. The rest of her ROS is negative. Timing/Duration: 4-6 Hours Severity/Quality: Severe, Aching, Sharp, Stabbing Location: LLQ Radiation: No Radiation Activities at Onset: None Associated Symptoms: Denies Symptoms Allergies and Home Medications Allergies Coded Allergies: sulfamethoxazole (Verified Allergy, Unknown, Hives, 11/02/18) trimethoprim (Verified Allergy, Unknown, Hives, 11/02/18) Patient Home Medication List Home Medication List Reviewed: Yes Albuterol Sulfate (Albuterol Sulfate) 2.5 Mg/3 Ml Vial.neb, 2.5 MG INH Q4H PRN for WHEEZING Prescribed by: SRUTHI THOMAS on 03/21/19 0157 Ascorbate Calcium (Vitamin C) 500 Mg Tablet, 500 MG PO DAILY, (Reported) Entered as Reported by: YUE MCDONALD on 11/02/18 1202 Bacillus Coagulans (Probiotic) 1 Each Capsule.dr, 1 EACH PO DAILY, (Reported) Entered as Reported by: YUE MCDONALD on 11/02/18 1202 Folic Acid (Folic Acid) 1 Mg Tablet, 1 MG PO DAILY, (Reported) Entered as Reported by: YUE MCDONALD on 11/02/18 1202 Hydrocodone/Acetaminophen (Hydrocodone/Acetaminophen 5 MG/325 MG TAB) 1 Each Tablet, 1-2 TAB PO Q6H Prescribed by: JOAQUINA RIVERA on 11/07/18 1059 Ibuprofen (Ibuprofen) 600 Mg Tablet, 600 MG PO Q6H Prescribed by: JOAQUINA RIVERA on 11/07/18 1059 Methotrexate Sodium (Methotrexate) 2.5 Mg Tablet, 20 MG PO WEEK, (Reported) Entered as Reported by: YUE MCDONALD on 11/02/18 120 Multivitamin (Gummi Bear Multivitamin) 1 Each Tab.chew, 2 EACH PO DAILY, (Reported) Entered as Reported by: JAMAL DIAZ on 11/07/18 1219 Topiramate (Topiramate) 25 Mg Tablet, 25 MG PO BID, (Reported) Entered as Reported by: YUE MCDONALD on 11/02/18 1202 Review of Systems Review of Systems Constitutional: see HPI EENTM: No Symptoms Reported Respiratory: No Symptoms Reported Cardiovascular: No Symptoms Reported Gastrointestinal: Abdominal Pain, Other (left pelvic pain) Genitourinary: Pain (low left pelvic pain) Musculoskeletal: no symptoms reported Skin: no symptoms reported Psychiatric/Neurological: No Symptoms Reported All Other Systems Reviewed Negative Unless Noted: Yes Past Hfrjapj-Xlggfj-Bmaewh Hx Patient Social History Tobacco Use?: No Substance use?: No Alcohol Use?: No Alcohol type: Wine Alcohol Frequency: Rarely Pt feels they are or have been: No Immunizations Up To Date Tetanus Booster (TDap): Unknown PED Vaccines UTD: Yes Influenza Vaccine Up-to-Date: Yes; Up-to-Date First/Initial COVID19 Vaccinat: 2020 Second COVID19 Vaccination José Luis: 2020 Seasonal Allergies Seasonal Allergies: Yes Past Medical History Surgery/Hospitalization HX: PCOS, MIGRAINES Surgeries: Yes (2 knee arthroscopies, wisdom) Adenoidectomy, Orthopedic, Tonsillectomy Respiratory: No Currently Using CPAP: No Currently Using BIPAP: No Cardiac: No Neurological: Yes Headaches /Migraines Last Menstrual Period: Apr 21, 2021 Reproductive Disorders: No Female Reproductive Disorders: Denies Sexually Transmitted Disease: No Genitourinary: No Gastrointestinal: No Musculoskeletal: Yes (knee scopes) Endocrine: No HEENT: No Cancer: No Psychosocial: No Integumentary: Yes Psoriasis Blood Disorders: No Physical Exam Vital Signs Vital Signs - First Documented 04/24/21 23:26 Temp 36.9 Pulse 64 Resp 16 B/P (MAP) 151/91 (111) Pulse Ox 98 O2 Delivery Room Air Capillary Refill : Height/Weight/BMI Height: 5'10.00" Weight: 300lbs. 0.0oz. 136.286992pv; 45.00 BMI Method:Stated General Appearance: WD/WN, no apparent distress HEENT: PERRL/EOMI Neck: normal inspection Respiratory: lungs clear, normal breath sounds, no respiratory distress, no accessory muscle use Cardiovascular: regular rate, rhythm Gastrointestinal: normal bowel sounds, soft, tenderness (low left pelvic pain - tender to palpation (not as severe as when the pain is at it's peak)) Extremities: normal range of motion, non-tender, normal inspection, no pedal edema Neurologic/Psychiatric: alert, normal mood/affect, oriented x 3 Skin: normal color, warm/dry Progress/Results/Core Measures Results/Orders Lab Results Laboratory Tests Test 04/24/21 23:35 04/25/21 00:37 Range/Units White Blood Count 8.1 4.3-11.0 10^3/uL Red Blood Count 3.88 3.80-5.11 10^6/uL Hemoglobin 11.2 L 11.5-16.0 g/dL Hematocrit 34 L 35-52 % Mean Corpuscular Volume 87 80-99 fL Mean Corpuscular Hemoglobin 29 25-34 pg Mean Corpuscular Hemoglobin Concent 33 32-36 g/dL Red Cell Distribution Width 12.8 10.0-14.5 % Platelet Count 234 130-400 10^3/uL Mean Platelet Volume 11.2 9.0-12.2 fL Immature Granulocyte % (Auto) 0 % Neutrophils (%) (Auto) 58 42-75 % Lymphocytes (%) (Auto) 31 12-44 % Monocytes (%) (Auto) 8 0-12 % Eosinophils (%) (Auto) 3 0-10 % Basophils (%) (Auto) 1 0-10 % Neutrophils # (Auto) 4.7 1.8-7.8 10^3/uL Lymphocytes # (Auto) 2.5 1.0-4.0 10^3/uL Monocytes # (Auto) 0.7 0.0-1.0 10^3/uL Eosinophils # (Auto) 0.2 0.0-0.3 10^3/uL Basophils # (Auto) 0.0 0.0-0.1 10^3/uL Immature Granulocyte # (Auto) 0.0 0.0-0.1 10^3/uL Sodium Level 139 135-145 MMOL/L Potassium Level 3.6 3.6-5.0 MMOL/L Chloride Level 108 H 98-107 MMOL/L Carbon Dioxide Level 20 L 21-32 MMOL/L Anion Gap 11 5-14 MMOL/L Blood Urea Nitrogen 12 7-18 MG/DL Creatinine 0.70 0.60-1.30 MG/DL Estimat Glomerular Filtration Rate 122 BUN/Creatinine Ratio 17 Glucose Level 91 70-105 MG/DL Calcium Level 9.1 8.5-10.1 MG/DL Urine Color YELLOW Urine Clarity CLEAR Urine pH 6.5 5-9 Urine Specific [place] 1.010 L 1.016-1.022 Urine Protein NEGATIVE NEGATIVE Urine Glucose (UA) NEGATIVE NEGATIVE Urine Ketones NEGATIVE NEGATIVE Urine Nitrite NEGATIVE NEGATIVE Urine Bilirubin NEGATIVE NEGATIVE Urine Urobilinogen 0.2 < = 1.0 MG/DL Urine Leukocyte Esterase 1+ H NEGATIVE Urine RBC (Auto) 1+ H NEGATIVE Urine RBC RARE /HPF Urine WBC NONE /HPF Urine Squamous Epithelial Cells 0-2 /HPF Urine Crystals NONE /LPF Urine Bacteria NEGATIVE /HPF Urine Casts NONE /LPF Urine Mucus NEGATIVE /LPF Urine Culture Indicated NO My Orders Orders - RENALDO GROSS MD Ua Culture If Indicated (04/25/21 00:14) Urine Bedside (04/25/21 00:14) Ed Iv/Invasive Line Start (04/25/21 00:21) Cbc With Automated Diff (04/25/21 00:21) Basic Metabolic Panel (04/25/21 00:21) Fentanyl Inj (Sublimaze Injection) (04/25/21 01:30) Us Pelvic (Non Ob)54315 (04/25/21 01:30) Ct Abd/Pelvis Wo(Kidney Stone) (04/25/21 02:16) Ketorolac Injection (Toradol Injection) (04/25/21 03:45) Medications Given in ED Vital Signs/I&O 3/05/1304/25/21 04/25/21 23:26 03:42 03:42 Temp 36.9 36.9 36.9 Pulse 64 62 Resp 16 16 B/P (MAP) 151/91 (111) 145/83 Pulse Ox 98 99 O2 Delivery Room Air Room Air Blood Pressure Mean: 111 Progress Progress Note #1: Time: 01:28 Progress Note Patient requesting pain medications. Has trace blood in urine - but is on last day of menses currently - possibly a specimen contaminated with a little vaginal blood. I don't think this is a kidney stone presentation. With her history of ovarian cyst - concern for ovarian torsion. Will get pelvic ultrasound. Progress Note #2: Time: 03:32 Progress Note Re-evaluated. pain mild. CT looks good. No evidence of kidney stone. Bowel, solid organs look good. Will give a dose of toradol and send home. Return precautions given. All questions are sought and answered. Diagnostic Imaging Diagonstic Imaging: Ultrasound Plain Films/CT/US/NM/MRI: pelvis Comments Pelvic Ultrasound - per stat rad - no acute findings in the pelvis, blood flow noted to both ovaries; no free fluid CT abdomen/pelvis, non contrast : Diagonstic Imaging: CT Plain Films/CT/US/NM/MRI: abdomen, pelvis Reviewed: Reviewed Night [facility] Study Departure Impression Primary Impression: LLQ pain Disposition: 01 HOME, SELF-CARE Condition: Stable Departure-Patient Inst. Decision time for Depature: 03:33 Referrals: YARITZA STEVENS MD (PCP/Family) Primary Care Physician Patient Instructions: Abdominal Pain, Adult ED Add. Discharge Instructions: Drink plenty of fluids to stay well hydrated. Ibuprofen OR Aleve for pain. You can take 800mg Ibuprofen (4 tablets) every 8 hours with food. OR aleve 2 pills twice a day with food for pain. If you develop a fever over 101, worse pain, with vomiting or bloody diarrhea or any other emergent, concerning symptoms, please come back to the ER for re- evaluation. Work/School Note: Work Release Form Date Seen in the Emergency Department: Apr 25, 2021 Return to Work: Apr 25, 2021 Other Restrictions Listed Below: to work at noon; due to late ER discharge Copy Copies To 1: YARITZA STEVENS MD, KATHRYN M MD Apr 25, 2021 01:29
[2021-04-25 03:42] VITALS: BP 145/83
[2021-04-25] MEDS ORDERED: KETOROLAC 30 MG/ML VIAL IVP ONE (03:45)
--- NOTE | 2021-04-25 06:29 | Diagnostic Imaging Report ---
PROCEDURE: CT urinary tract, rule out kidney stone. TECHNIQUE: Multiple contiguous axial images were obtained through the abdomen and pelvis without the use of intravenous contrast. Auto Exposure Controls were utilized during the CT exam to meet ALARA standards for radiation dose reduction. INDICATION: Flank pain. COMPARISON: Pelvic ultrasound from same date FINDINGS: The visualized lung bases are clear. The unenhanced liver and spleen are unremarkable. The adrenal glands are unremarkable. The pancreas is unremarkable. The gallbladder is unremarkable. The bilateral kidneys and ureters are unremarkable. No aneurysmal dilatation of the abdominal aorta. Small fat-containing umbilical hernia. The appendix is unremarkable. The urinary bladder is unremarkable. The uterus and adnexal structures are unremarkable for age. No bowel obstruction or pneumatosis. No significant adenopathy, free air, or free fluid within the abdomen or pelvis. No acute osseous abnormality. IMPRESSION: No acute abnormality. Agree with preliminary interpretation. Dictated by: Dictated on workstation # [id number]
--- NOTE | 2021-04-25 06:44 | Diagnostic Imaging Report ---
PROCEDURE: US PELVIC (NON OB) TECHNIQUE: Multiple real-time grayscale images were obtained over the pelvis in various projections transabdominally. INDICATION: Left-sided pelvic pain. COMPARISON: 05/13/2018. FINDINGS: The uterus is anteverted and measures 7.8 x 3.0 x 4.7 cm. No focal uterine mass is seen. The endometrial stripe measures 0.5 cm in thickness and has a normal appearance. The right ovary measures 4.0 x 2.0 x 2.4 cm. There is normal color Doppler flow within the right ovary. The left ovary measures 4.0 x 1.9 x 2.0 cm. Normal color Doppler flow is seen within the left ovary. No evidence of adnexal mass or free fluid. IMPRESSION: No acute sonographic abnormalities are seen in the pelvis. No evidence of torsion or free fluid. Agree with overnight report. Dictated by: Dictated on workstation # [id number]
== END 2021-04-25 03:46 | disposition home or self-care (01) ==
LOC: EDUNIT# 23:12 → ER 23:15
DX: R10.32 Left lower quadrant pain (principal)
CPT/HCPCS: 36415; 74176; 76856; 80048; 81000; 84703; 85025